=== PATIENT | female | born 1990 | race Asian ===

== ENCOUNTER 2018-01-17 08:34 | Outpatient (CLI) | END 2018-01-17 12:30 | disposition home or self-care (01) ==

== ENCOUNTER 2018-01-18 11:21 | Outpatient (CLI) | END 2018-01-18 13:20 | disposition home or self-care (01) ==

== ENCOUNTER 2018-01-30 18:35 | Observation (INO) | END 2018-01-31 15:38 | disposition home or self-care (01) ==

== ENCOUNTER 2018-02-01 09:31 | Inpatient (IN) | END 2018-02-04 16:40 | disposition home or self-care (01) | DRG 766 ==